=== PATIENT | male | born 1950 | race Caucasian/White ===

== ENCOUNTER 2018-11-17 14:53 | Inpatient (IN) | payer MEDICARE, BC ==
[~2018-11-17] VITALS: Ht 180.3 cm; Wt 99.3 kg
[2018-12-26] VITALS (10 sets, daily range): BP systolic 114–145; BP diastolic 68–90; PULSE 63–86; TEMP 97.2–97.5
[2018-12-26] MEDS ORDERED: ZESTRIL 20MG TA20 MG PO (02:38)
[2018-12-26] MEDS ORDERED: PRAVACHOL 20MG20 MG PO (02:54)
[2018-12-26] MEDS ORDERED: FLOMAX 0.40.4 MG/CAP PO (02:54)
--- NOTE | 2018-12-26 06:24 | NUR ---
Pt. arrived to the floor at 0520. Pt. preoped for surgery. Pt. is A&OX3, assessment complete. IV started to rt. hand. Pt. tolerated well. Preop meds given. Pt. denies pain or other meds.
--- NOTE | 2018-12-26 11:41 | NUR ---
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 No needs right now.
--- NOTE | 2018-12-26 13:47 | NUR ---
NANY met with the patient and his , Yolanda (ph#[phone]), to discuss discharge plan. The patient lives in [place] with his . He reports independence with ADLs and has a walker. The patient's PCP is Dr. Jazmine Chamberlain in [place] and he receives his medications at [facility]. He reports no difficulties obtaining his meds. The patient does not have advanced directives completed, but he was interested in obtaining a form for DPOA-HC. NANY provided. The patient plans to return home with his and receive outpatient PT at [facility] upon discharge. No additional needs at this time.
--- NOTE | 2018-12-26 14:05 | NUR ---
PATIENT IS NOW C/O PAIN IN RLE. GAVE PRN NORCO, TWO TABS FOR PAIN. VSS. PATIENT SLEEPING INTERMITTENTLY. NO OTHER NEEDS AT THIS TIME. AT BEDSIDE. CALL LIGHT IN REACH.
--- NOTE | 2018-12-26 20:00 | NUR ---
Report received. Assumed care for shift stacker. A&Ox3. Assessment complete. Plan of care discussed for ambualtion this shift/HS meds/pain meds. Verbalizes understanding. Dressing to right knee-bulky white/kwan bandage-clean, dry and intact. Fresh ice pack applied. Good CMS to right lower extremity. TEDs/SCDs bilat. Denies needs. Call light in reach. Will monitor.
[2018-12-26] MEDS ORDERED: ASPI325T6 PO (20:32)
[2018-12-26] MEDS ORDERED: CELEBREX 200MG200 MG PO (20:32)
[2018-12-26] MEDS ORDERED: NORCO 325 MG-7.1 TAB PO (20:32)
[2018-12-26] MEDS ORDERED: ULTRAM 50MG TAB50 MG PO (20:33)
--- NOTE | 2018-12-26 21:00 | NUR ---
Up out of bed for ambulation. Sat on side of bed, stood and ambulated 200 feet without difficulty-stand by assistx2 with gait belt. Tolerated well. Assited back to bed. Right lower extremity positioned on pillow with proper alignment. Fresh ice pack applied. Will monitor.
[2018-12-27] VITALS: BP 125/69; PULSE 63; TEMP 98.3
--- NOTE | 2018-12-27 03:00 | NUR ---
C/O pain to right knee described as throbbing-rated 5/10 on scale. Scheduled toradol given as well as Tracy per dr order. Will monitor.
[2018-12-27 03:21] VITALS: BP 127/68; PULSE 86; TEMP 98
--- NOTE | 2018-12-27 06:00 | NUR ---
Has rested off and on this shift. Pain controlled with IV Toradol/[place]. Did received morphine for breakthru pain earlier this shift. VS remain stable. Tolerating PO. Foely cath with clear yellow urine. Denies Nausea/shortness of breath. Call light in reach. Will monitor.
[2018-12-27 06:31] LABS: HEMOGLOBIN 11.7 g/dl (13.5-18.0)
[2018-12-27 06:44] LABS: HEMATOCRIT 36.3 % (42.0-52.0)
--- NOTE | 2018-12-27 07:15 | NUR ---
report from Paty GARBER.
--- NOTE | 2018-12-27 07:40 | NUR ---
Discontinued dixon catheter. 8.1 mL aspirated from balloon. Tip intact when withdrawn. Pt tolerated well. Pericare provided. 1525 mL urine emptied from catheter bag. Urine was pale yellow with no smell.
--- NOTE | 2018-12-27 08:30 | NUR ---
Shift assessment completed. Pt stated no pain. Robert hose and SCDs were on both legs. INT intact. Aquacell dressing to right knew CDI with ice. Encouraged use of IS.
--- NOTE | 2018-12-27 09:01 | NUR ---
Ambulated with PT. Steady gait.
[2018-12-27 09:43] VITALS: BP 93/60; PULSE 80; TEMP 97.5
[2018-12-27 10:46] VITALS: BP 108/62; PULSE 86; TEMP 97.1
--- NOTE | 2018-12-27 11:02 | NUR ---
Reported off to SHIRLENE Spears.
--- NOTE | 2018-12-27 15:01 | NUR ---
DISCHARGE INSTRUCTIONS PROVIDED TO PATIENT AND FAMILY. QUESTIONS SOLICITED AND ANSWERED. PT'S FAMILY LEFT TO GET MEDICATIONS FILLED AND WILL RETURN FOR PATIENT.
== END 2018-12-27 15:09 | disposition home or self-care (01) | DRG 470 ==
LOC: JCC 12-26 05:18
PROVIDERS: Physician Assistant; ADMIT Orthopaedic Surgery
PROC: 0SRC0J9 Replacement of Right Knee Joint with Synthetic Substitute, Cemented, Open Approach (ICD-10-PCS; principal; 2018-12-26 07:30)
DX: M17.11 Unilateral primary osteoarthritis, right knee (principal); I12.9 Hypertensive chronic kidney disease with stage 1 through stage 4 chronic kidney disease, or unspecified chronic kidney disease; N18.3 Chronic kidney disease, stage 3 (moderate); N40.0 Benign prostatic hyperplasia without lower urinary tract symptoms; Z87.891 Personal history of nicotine dependence
CPT/HCPCS: A4314; A9284; C1776; J0690; J1885; J2250; J2270; J2405; J2704; J3010; J7120; J7121